=== PATIENT | male | born 1950 | race Caucasian/White ===

== ENCOUNTER 2019-02-03 12:18 | Emergency (ER) | payer BC, MEDICARE ==
--- NOTE | 2019-02-03 13:03 | ER Document Report ---
ED Medical Screen (RME) - General Chief Complaint: Foreign Body in Ear Stated Complaint: RIGHT EAR PAIN Primary Care Provider: JOHN AU PA-C [NO LOCAL MD] - Follow up in 3-5 days AMEENA JOSHI MD [ACTIVE STAFF] - 02/03/19 1:09 pm Mode of Arrival: Ambulatory Information source: Patient Notes: 68-year-old male presented to ED with a frazier in the right ear canal since 1 AM this morning. He states he was on his face he tried swatted and it went into his ear. The above was alive when it first started. I did instill 2 cc of alcohol which has killed the bug. I have attempted removal of the bug with forceps patient was not able to hold still and tolerate the forceps. I have tried flushing with peroxide and water and the patient is not able to tolerate that. I have tried using a ear curette and patient is not able to tolerate that. We will consult another provider for removal of the ear canal bug. TRAVEL OUTSIDE OF THE [place] IN LAST 30 DAYS: No - HPI Onset: Other - 1 AM Onset/Duration: Gradual Quality of pain: Achy, Sharp Severity: Severe Pain Level: 5 Associated Symptoms: Other - Bug in the right ear canal Exacerbated by: Movement Relieved by: Denies Similar symptoms previously: No Recently seen / treated by doctor: No - Mr. - Related Data Smoking: Non-smoker Frequency of alcohol use: None Drug Abuse: None Allergies/Adverse Reactions: sulfamethoxazole [From Bactrim] Allergy (Verified 02/03/19 12:19) trimethoprim [From Bactrim] Allergy (Verified 02/03/19 12:19) hydrochlorothiazide [Hydrochlorothiazide] Adverse Reaction (Verified 02/03/19 12:19) Past Medical History - General Information source: Patient - 9-hour - Social History Frequency of alcohol use: None Drug Abuse: None - Live alone Lives with: Parents Family history: Reviewed & Not Pertinent - Past Medical History Cardiac Medical History: Reports: Hx Coronary Artery Disease, Hx Hypercholesterolemia, Hx Hypertension Pulmonary Medical History: Reports: Hx Asthma EENT Medical History: Reports: None Neurological Medical History: Reports: None Endocrine Medical History: Reports: Hx Diabetes Mellitus Type 2 Renal/ Medical History: Reports: None Malignancy Medical History: Reports None GI Medical History: Reports: None Musculoskeltal Medical History: Reports None Skin Medical History: Reports None Psychiatric Medical History: Reports: None Traumatic Medical History: Reports: None Infectious Medical History: Reports: None Past Surgical History: Reports: Hx Appendectomy - Immunizations Immunizations up to date: Yes Hx Diphtheria, Pertussis, Tetanus Vaccination: Yes Review of Systems - Review of Systems Constitutional: No symptoms reported EENT: No symptoms reported, Ear pain - Motrin the right ear canal is become in the ED even to 68 here last night about 1:00 AM Cardiovascular: No symptoms reported Respiratory: No symptoms reported Gastrointestinal: No symptoms reported Genitourinary: No symptoms reported Male Genitourinary: No symptoms reported Musculoskeletal: No symptoms reported Skin: No symptoms reported Hematologic/Lymphatic: No symptoms reported Neurological/Psychological: No symptoms reported Physical Exam - Vital signs Vitals: Temp Pulse Resp BP Pulse Ox 98.8 F 97 18 182/93 H 94 02/03/19 12:23 02/03/19 12:23 02/03/19 12:23 02/03/19 12:23 02/03/19 12:23 Interpretation: Normal - General General appearance: Appears well, Alert - HEENT Head: Normocephalic, Atraumatic Eyes: Normal Pupils: PERRL Ears: Normal External canal: Foreign body - frazier in the ear canal Tympanic membrane: Normal Sinus: Normal Nasal: Normal Mouth/Lips: Normal Mucous membranes: Normal Pharynx: Normal - Respiratory Respiratory status: No respiratory distress Chest status: Nontender Breath sounds: Normal Chest palpation: Normal - Cardiovascular Rhythm: Regular Heart sounds: Normal auscultation Murmur: No - Abdominal Inspection: Normal Distension: No distension Bowel sounds: Normal Tenderness: Nontender Organomegaly: No organomegaly - Back Back: Normal, Nontender - Extremities General upper extremity: Normal inspection, Nontender, Normal color, Normal ROM, Normal temperature General lower extremity: Normal inspection, Nontender, Normal color, Normal ROM, Normal temperature, Normal weight bearing. No: Sheri's sign - Neurological Neuro grossly intact: Yes Cognition: Normal Orientation: AAOx4 [place] Coma Scale Eye Opening: Spontaneous [place] Coma Scale Verbal: Oriented [place] Coma Scale Motor: Obeys Commands [place] Coma Scale Total: 15 Speech: Normal Motor strength normal: LUE, RUE, LLE, RLE Sensory: Normal - Psychological Associated symptoms: Normal affect, Normal mood - Skin Skin Temperature: Warm Skin Moisture: Dry Skin Color: Normal Course - Re-evaluation Re-evalutation: 02/03/19 13:03 Patient was treated with 3 cc to the ear canal to kill the frazier. Patient was not able to tolerate removal of the frazier in the emergency room. Spoke with Dr[facility] he stated to send him over to the clinic and they would work him and get his paperwork done. He said he would get the bug out. - Vital Signs Vital signs: Temp Pulse Resp BP Pulse Ox 98.8 F 97 18 151/75 H 94 02/03/19 12:23 02/03/19 12:23 02/03/19 12:23 02/03/19 13:10 02/03/19 12:23 Doctor's Discharge - Discharge Clinical Impression: frazier in right ear not remoced Condition: Stable Disposition: HOME, SELF-CARE Additional Instructions: Foreign Object in the Ear, Not Removed Examination showed a foreign body in the ear. This can cause pain, swelling, infection, and decreased hearing. The foreign object must be removed promptly. We were unable to remove it today. We are referring you to a specialist to have the foreign body removed. Call us if you aren't able to be seen as scheduled. Usually no further treatment is necessary following removal. If infection is already present, you may receive a prescription for antibiotic drops. If hearing is not normal after removal of the foreign object, or if an obvious injury to the eardrum was seen, another checkup with the specialist will be necessary. If there is continued drainage, continued earache, fever, headache, or hearing loss, you should return for further care. I have spoken with Dr. [facility] at [facility] he stated he would see you and get the bug out. Acetaminophen Acetaminophen may be taken for pain relief or fever control. It's much safer than aspirin, offering a wider range of "safe" dosages. It is safe during . Some brand names are Tylenol, Panadol, Datril, Anacin 3, Tempra, and Liquiprin. Acetaminophen can be repeated every four hours. The following are maximum recommended dosages: WEIGHT Dose Drops Elixir Chewable(80mg) (LBS.) drprs=droppers tsp=teaspoon 6 40 mg .4 ml (1/2) 6-11 80 mg .8 ml (full) 1/2 tsp 1 tab 12-16 120 mg 1 1/2 drprs 3/4 tsp 1 1/2 tabs 17-23 160 mg 2 drprs 1 tsp 2 tabs 24-30 240 mg 3 drprs 1 1/2 tsp 3 tabs 30-35 320 mg 2 tsp 4 tabs 36-41 360 mg 2 1/4 tsp 4 1/2 tabs 42-47 400 mg 2 1/2 tsp 5 tabs 48-53 480 mg 3 tsp 6 tabs 54-59 520 mg 3 1/4 tsp 6 1/2 tabs 60-64 560 mg 3 1/2 tsp 7 tabs 65-70 600 mg 3 3/4 tsp 7 1/2 tabs 71-76 640 mg 4 tsp 8 tabs 77-82 720 mg 4 1/2 tsp 9 tabs 83-88 800 mg 5 tsp 10 tabs >89 pounds or adults 650 mg to 900 mg Acetaminophen can be repeated every four hours. Maximum daily dose not to exceed 4000 mg. These maximum recommended dosages are slightly higher than the dosages written on the product container, but these dosages are very safe and well below the toxic dosage for acetaminophen. FOLLOW-UP CARE: If you have been referred to a physician for follow-up care, call the physicians office for an appointment as you were instructed or within the next two days. If you experience worsening or a significant change in your symptoms, notify the physician immediately or return to the Emergency Department at any time for re-evaluation. Forms: Elevated Blood Pressure Referrals: JOHN AU PA-C [NO LOCAL MD] - Follow up in 3-5 days AMEENA JOSHI MD [ACTIVE STAFF] - 02/03/19 1:09 pm
[2019-02-03] MEDS ORDERED: ACETAMINOPHEN 325 MG TABLET PO ONE (13:06)
[2019-02-03 13:10] VITALS: BP 151/75
== END 2019-02-03 13:12 | disposition home or self-care (01) ==
LOC: ER 12:18
DX: T16.1XXA Foreign body in right ear, initial encounter (principal); H92.01 Otalgia, right ear; X58.XXXA Exposure to other specified factors, initial encounter; Z88.3 Allergy status to other anti-infective agents; I25.10 Atherosclerotic heart disease of native coronary artery without angina pectoris; E78.00 Pure hypercholesterolemia, unspecified; I10 Essential (primary) hypertension; E11.9 Type 2 diabetes mellitus without complications
CPT/HCPCS: 99282; A9270